=== PATIENT | male | born 1950 | race Caucasian/White ===

== ENCOUNTER 2018-01-22 07:28 | Outpatient (CLI) | payer OTHER ==
[~2018-01-22 07:28] MED LIST: AMARYL PO; LASIX 40MG40 MG/4 ML; LASIX20 MG; LASIX20 MG PO; NORVASC10 MG; NORVASC10 MG PO; OMEPRAZOLE10 MG; PANTOPRAZOLE SO40 MG PO; PROTONIX20 MG PO; SUCRALFATE1 GM/10 ML PO
== END 2018-01-22 07:45 | disposition home or self-care (01) ==
LOC: NUCLEAR 07:28
DX: C61 Malignant neoplasm of prostate (principal)
CPT/HCPCS: 78306; 78320; A9503

== ENCOUNTER 2018-02-27 08:29 | Outpatient (CLI) | payer OTHER | END 2018-02-27 09:10 | disposition home or self-care (01) | LOC: NUCLEAR 08:29 | DX: C61 Malignant neoplasm of prostate (principal); C79.51 Secondary malignant neoplasm of bone; C15.9 Malignant neoplasm of esophagus, unspecified; D50.8 Other iron deficiency anemias; D63.0 Anemia in neoplastic disease; D63.1 Anemia in chronic kidney disease; E83.52 Hypercalcemia; I10 Essential (primary) hypertension; E11.22 Type 2 diabetes mellitus with diabetic chronic kidney disease; N18.3 Chronic kidney disease, stage 3 (moderate) | CPT/HCPCS: 78816; A9552 ==

== ENCOUNTER 2018-03-22 20:50 | Emergency (ER) | payer OTHER ==
[~2018-03-22] VITALS: Ht 175.3 cm; Wt 99.8 kg
== END 2018-03-24 07:43 | disposition home or self-care (01) ==
LOC: ER 20:50
DX: D50.0 Iron deficiency anemia secondary to blood loss (chronic) (principal); K92.1 Melena; R42 Dizziness and giddiness

== ENCOUNTER 2018-08-04 09:41 | Outpatient (CLI) | payer OTHER | END 2018-08-04 10:11 | disposition home or self-care (01) | LOC: NUCLEAR 09:41 | DX: C61 Malignant neoplasm of prostate (principal); C79.51 Secondary malignant neoplasm of bone; C15.8 Malignant neoplasm of overlapping sites of esophagus; D50.8 Other iron deficiency anemias; D63.0 Anemia in neoplastic disease; D63.1 Anemia in chronic kidney disease; E83.52 Hypercalcemia; I10 Essential (primary) hypertension; E11.22 Type 2 diabetes mellitus with diabetic chronic kidney disease; N18.3 Chronic kidney disease, stage 3 (moderate) | CPT/HCPCS: 78306; 78320; A9503 ==

== ENCOUNTER → 2018-09-21 | Outpatient (CLI) | payer OTHER | END | disposition home or self-care (01) | LOC: NUCLEAR 09:12 | DX: C61 Malignant neoplasm of prostate (principal); C79.51 Secondary malignant neoplasm of bone; D50.8 Other iron deficiency anemias; D63.1 Anemia in chronic kidney disease; E83.52 Hypercalcemia; I10 Essential (primary) hypertension; E11.22 Type 2 diabetes mellitus with diabetic chronic kidney disease; N18.3 Chronic kidney disease, stage 3 (moderate); E21.0 Primary hyperparathyroidism | CPT/HCPCS: 78070; A9500 ==

== ENCOUNTER → 2019-01-06 | Outpatient (CLI) | payer OTHER | END | disposition home or self-care (01) | LOC: NUCLEAR 12-31 07:00 | DX: C61 Malignant neoplasm of prostate (principal); C79.51 Secondary malignant neoplasm of bone; Z08 Encounter for follow-up examination after completed treatment for malignant neoplasm | CPT/HCPCS: 78816; A9552 ==

== ENCOUNTER 2020-05-21 08:27 | Emergency (ER) | payer OTHER ==
[~2020-05-21] VITALS: Ht 175.3 cm; Wt 102.1 kg
[2020-05-21] MEDS ORDERED: GLIMEPIRIDE1 MG (08:36)
== END 2020-05-21 14:28 | disposition home or self-care (01) ==
LOC: ER 08:27
DX: R42 Dizziness and giddiness (principal); K59.09 Other constipation; E11.9 Type 2 diabetes mellitus without complications; K92.1 Melena; Z20.828 Contact with and (suspected) exposure to other viral communicable diseases

== ENCOUNTER 2020-07-28 07:21 | Emergency (ER) | payer OTHER ==
[~2020-07-28] VITALS: Ht 175.3 cm; Wt 103.4 kg
[~2020-07-28 07:21] MED LIST changes: +GLIMEPIRIDE1 MG
[2020-07-28] MEDS ORDERED: GLIMEPIRIDE2 MG (07:42)
[2020-07-28] MEDS ORDERED: MIRALAX510 GM PO (16:35)
== END 2020-07-28 17:23 | disposition home or self-care (01) ==
LOC: ER 07:21
DX: K59.09 Other constipation (principal); R14.0 Abdominal distension (gaseous); Z03.818 Encounter for observation for suspected exposure to other biological agents ruled out

== ENCOUNTER 2022-01-02 07:42 | Outpatient (CLI) | payer OTHER ==
[~2022-01-02 07:42] MED LIST changes: +GLIMEPIRIDE2 MG; +MIRALAX510 GM PO
== END 2022-01-02 08:00 | disposition home or self-care (01) ==
LOC: NUCLEAR 07:42
DX: E21.0 Primary hyperparathyroidism (principal)

== ENCOUNTER 2022-02-15 11:24 | Emergency (ER) | payer OTHER ==
[~2022-02-15] VITALS: Ht 175.3 cm; Wt 99.8 kg
== END 2022-02-16 08:30 ==
LOC: ER 11:24
DX: E87.6 Hypokalemia (principal); I12.9 Hypertensive chronic kidney disease with stage 1 through stage 4 chronic kidney disease, or unspecified chronic kidney disease; E11.22 Type 2 diabetes mellitus with diabetic chronic kidney disease; N18.30 Chronic kidney disease, stage 3 unspecified; Z88.6 Allergy status to analgesic agent; Z79.899 Other long term (current) drug therapy; E11.649 Type 2 diabetes mellitus with hypoglycemia without coma; Z79.84 Long term (current) use of oral hypoglycemic drugs

== ENCOUNTER → 2025-04-05 07:45 | Outpatient (CLI) | payer OTHER | END | disposition home or self-care (01) | LOC: NUCLEAR 03-30 09:00 | PROVIDERS: ATTEND Internal Medicine Cardiovascular Disease | DX: R06.09 Other forms of dyspnea (principal) ==

== ENCOUNTER 2025-04-25 07:14 | Outpatient (CLI) | payer OTHER | END 2025-04-25 07:16 | disposition home or self-care (01) | LOC: NUCLEAR 07:14 | PROVIDERS: ATTEND Internal Medicine Cardiovascular Disease | DX: R06.09 Other forms of dyspnea (principal) | CPT/HCPCS: 78452; 93017; A9500; J0153 ==

== ENCOUNTER 2025-09-10 11:30 | Inpatient (IN) | payer OTHER ==
[~2025-09-10] VITALS: Ht 175.3 cm; Wt 82.1 kg
[2025-09-10] MEDS ORDERED: COZAAR100 MG (11:45)
[2025-09-10] MEDS ORDERED: FAMOtidine 10 MG/ML (4ML VIAL) IV ONE (12:15)
[2025-09-10] MEDS ORDERED: HYOSCYAMINE SULFATE 0.125 MG TAB.SUBL SL ONE (12:15)
[2025-09-10] MEDS ORDERED: ONDANSETRON HCL 4 MG in 0.9 % SODIUM CHLORIDE 50 ML IV ONE (12:15)
[2025-09-10] MEDS ORDERED: RINGERS SOLUTION,LACTATED 1,000 ML IV SCH (12:15)
[2025-09-10 12:52] LABS: BASO % 0.1 % (0.1-1.2); EOS # 0.02 (0.04-0.54); EOS % 0.2 % (0.7-7.0); LYMPH # 0.56 (1.18-3.74); LYMPH % 6.4 % (19.3-53.1); MEAN PLATELET VOLUME 10.00 fl (9.4-12.4); MONO # 0.58 (0.24-0.82); MONO % 6.6 % (4.7-12.5); NEUT # 7.57 (1.56-6.13); NEUT % 86.1 % (34.0-71.1); RED CELL DISTRIBUTION WIDTH 16.5 % (11.6-14.4)
[2025-09-10 12:53] LABS: ERYTHROCYTE SEDIMENTATION RATE 28 mm/hr (0-20)
[2025-09-10 13:13] LABS: INR 1.21
[2025-09-10 13:17] LABS: ALT/SGPT 14.0 U/L (12-78); AST/SGOT 17.0 U/L (15-37); BILIRUBIN TOTAL 0.62 mg/dL (0.3-1.2); BUN CREA RATIO 21.0 (7.0-25.0); CREATININE SERUM 2.82 mg/dL (0.70-1.30); GFR 22.02; GLOBULINA 3.8 G/DL (2.4-3.5); GLUCOSE FASTING 98.0 mg/dL (65-100); OSMOLALITY SERUM 307.0 MOSM/KG (275-295)
[2025-09-10 13:47] LABS: URINE APPEARANCE Clear; URINE BILIRRUBIN Negative (NEGATIVE); URINE BLOOD Negative; URINE COLOR Yellow; URINE GLUCOSE Negative (NEGATIVE); URINE KETONE Negative (NEGATIVE); URINE LEUKOCYTE Negative; URINE NITRATE Negative; URINE PROTEIN Trace (NEGATIVE); URINE UROBILINOGEN 0.2 E.U./dl
[2025-09-10 13:52] LABS: FECAL LEUKOCYTES POSITIVE (NEGATIVE); URINE WBC 2.1 uL (0.0-23.2)
[2025-09-10 13:54] LABS: ob POSITIVE (NEGATIVE)
[2025-09-10 14:00] LABS: URINE BACTERIA 3.5 uL (0.0-1933); URINE CAST 0.00 uL (0.0-1.40); URINE EPITHELIAL CELLS 1.3 uL (0.0-38.8); URINE RBC 0.4 uL (0.0-20.8)
[2025-09-10] MEDS ORDERED: PANTOPRAZOLE SODIUM 40 MG in 0.9 % SODIUM CHLORIDE 8 ML IV PUSH SCH (17:07)
[2025-09-10] MEDS ORDERED: CIPROFLOXACIN IN 5 % DEXTROSE 200 ML IV SCH (17:08)
[2025-09-10 23:13] VITALS: BP 110/70
[2025-09-11 07:35] VITALS: BP 134/70; O2SAT 100
[2025-09-11 08:00] LABS: BASO % 0.1 % (0.1-1.2); EOS # 0.03 (0.04-0.54); EOS % 0.4 % (0.7-7.0); LYMPH # 0.47 (1.18-3.74); LYMPH % 6.8 % (19.3-53.1); MEAN PLATELET VOLUME 10.10 fl (9.4-12.4); MONO # 0.58 (0.24-0.82); MONO % 8.4 % (4.7-12.5); NEUT # 5.80 (1.56-6.13); NEUT % 83.9 % (34.0-71.1); RED CELL DISTRIBUTION WIDTH 16.4 % (11.6-14.4)
[2025-09-11 08:05] LABS: INR 1.28
[2025-09-11 08:07] LABS: ALT/SGPT 13.0 U/L (12-78); AST/SGOT 15.0 U/L (15-37); BILIRUBIN TOTAL 0.77 mg/dL (0.3-1.2); BUN CREA RATIO 21.0 (7.0-25.0); CREATININE SERUM 2.47 mg/dL (0.70-1.30); GFR 25.66; GLOBULINA 3.0 G/DL (2.4-3.5); GLUCOSE FASTING 108.0 mg/dL (65-100); OSMOLALITY SERUM 308.0 MOSM/KG (275-295)
[2025-09-11 11:48] VITALS: BP 119/76; O2SAT 98
[2025-09-11 16:51] VITALS: BP 132/77; O2SAT 100
[2025-09-12 00:30] VITALS: BP 108/65; O2SAT 96
[2025-09-12 08:00] VITALS: BP 131/64; O2SAT 97
[2025-09-12 16:00] VITALS: BP 154/72; O2SAT 100
[2025-09-12] MEDS ORDERED: LACTOBACILLUS ACIDOPHILUS 1 CAP CAP PO SCH (17:00)
[2025-09-13] VITALS: BP 133/62; O2SAT 98
[2025-09-13] MEDS ORDERED: SODIUM CHLORIDE 0.45 % 1,000 ML IV SCH (05:45)
[2025-09-13 07:26] LABS: BASO % 0.3 % (0.1-1.2); EOS # 0.13 (0.04-0.54); EOS % 2.3 % (0.7-7.0); LYMPH # 0.87 (1.18-3.74); LYMPH % 15.1 % (19.3-53.1); MEAN PLATELET VOLUME 10.30 fl (9.4-12.4); MONO # 0.47 (0.24-0.82); MONO % 8.2 % (4.7-12.5); NEUT # 4.23 (1.56-6.13); NEUT % 73.4 % (34.0-71.1); RED CELL DISTRIBUTION WIDTH 16.3 % (11.6-14.4)
[2025-09-13 08:00] LABS: ALT/SGPT 13.0 U/L (12-78); AST/SGOT 19.0 U/L (15-37); BILIRUBIN TOTAL 0.51 mg/dL (0.3-1.2); BUN CREA RATIO 17.0 (7.0-25.0); CREATININE SERUM 1.91 mg/dL (0.70-1.30); GFR 34.52; GLOBULINA 2.6 G/DL (2.4-3.5); GLUCOSE FASTING 92.0 mg/dL (65-100); OSMOLALITY SERUM 297.0 MOSM/KG (275-295)
[2025-09-13 08:30] VITALS: BP 155/81; O2SAT 96
[2025-09-13] MEDS ORDERED: CIPROFLOXACIN IN 5 % DEXTROSE 200 ML IV SCH (09:00)
[2025-09-13] MEDS ORDERED: AMINO ACIDS/PROTEIN HYDROLYS 30 ML BLIST.PACK PO SCH (17:00)
[2025-09-13 17:10] VITALS: BP 150/82; O2SAT 97
[2025-09-14 03:20] VITALS: BP 148/81; O2SAT 96
[2025-09-14 07:54] LABS: BASO % 0.2 % (0.1-1.2); EOS # 0.14 (0.04-0.54); EOS % 2.4 % (0.7-7.0); LYMPH # 0.81 (1.18-3.74); LYMPH % 14.1 % (19.3-53.1); MEAN PLATELET VOLUME 10.10 fl (9.4-12.4); MONO # 0.52 (0.24-0.82); MONO % 9.0 % (4.7-12.5); NEUT # 4.25 (1.56-6.13); NEUT % 73.8 % (34.0-71.1); RED CELL DISTRIBUTION WIDTH 16.3 % (11.6-14.4)
[2025-09-14 08:38] LABS: BUN CREA RATIO 15.0 (7.0-25.0); CREATININE SERUM 1.91 mg/dL (0.70-1.30); GFR 34.52; GLUCOSE FASTING 93.0 mg/dL (65-100); OSMOLALITY SERUM 292.0 MOSM/KG (275-295)
[2025-09-14 09:23] VITALS: BP 160/83; O2SAT 99
[2025-09-14 16:00] VITALS: BP 154/76; O2SAT 97
[2025-09-15 00:30] VITALS: BP 149/75; O2SAT 99
[2025-09-15] MEDS ORDERED: CIPRO500 MG PO (06:45)
[2025-09-15] MEDS ORDERED: METRONIDAZOLE500 MG PO (06:45)
[2025-09-15] MEDS ORDERED: LOSARTAN POTASS50 MG PO (06:45)
[2025-09-15 08:37] VITALS: BP 144/76; O2SAT 98
[2025-09-15] MEDS ORDERED: PANTOPRAZOLE SODIUM 40 MG TABLET.DR PO SCH (09:00)
[2025-09-18 08:06] LABS: campy Final report (.)
== END 2025-09-15 15:11 | disposition home or self-care (01) | DRG 378 ==
LOC: ER 11:30 → SEC-K 22:54 → SURH 22:54
PROVIDERS: General Practice; Internal Medicine Infectious Disease; Internal Medicine Nephrology; ADMIT Internal Medicine; ATTEND Internal Medicine
PROC: BW21ZZZ Computerized Tomography (CT Scan) of Abdomen and Pelvis (ICD-10-PCS; principal; 2025-09-10)
DX: K62.5 Hemorrhage of anus and rectum (principal); E87.0 Hyperosmolality and hypernatremia; N17.9 Acute kidney failure, unspecified; I10 Essential (primary) hypertension; E11.9 Type 2 diabetes mellitus without complications; Z79.4 Long term (current) use of insulin